=== PATIENT | male | born 1980 | race Caucasian/White ===

== ENCOUNTER 2020-04-12 19:36 | Emergency (ER) | payer OTHER, SELFPAY ==
--- NOTE | 2020-04-12 19:38 | ED.DENTAL ---
HPI - Dental/Oral General Chief complaint: Dental/Oral Stated complaint: toothache Time Seen by Provider: 04/12/20 19:38 History of Present Illness HPI Narrative: This is a 39-year-old male comes in complaining of dental pain and jaw swelling. Patient states that his teeth started to hurt a couple of days ago. Patient has multiple teeth fractures and states that he has had 2 problems since he was a child. Patient does have a dentist has not been to see him since COVID denies any fever nausea and/or vomiting. Related Data Allergies Allergy/AdvReac Type Severity Reaction Status Date / Time Penicillins Allergy Mild Unknown Verified 04/12/20 19:47 Review of Systems Review of Systems: Narrative: CONSTITUTIONAL: Denies fever, chills, or sweats. EYES: Denies visual changes, redness, or discharge. ENT: Denies rhinorrhea, congestion, sore throat, or otalgia.dENTAL PAIN CARDIOVASCULAR:Denies chest pain, palpitations, or edema. RESPIRATORY: Denies cough or dyspnea. GASTROINTESTINAL: Denies abdominal pain, nausea, vomiting, or diarrhea. GENITOURINARY: Denies dysuria or hematuria. SKIN:[Denies rash or itching. MUSCULOSKELETAL:Denies back pain, joint pain, or myalgia. NEUROLOGIC: Denies headache, numbness, or weakness. PSYCHIATRIC:Denies anxiety or depression PMFSH Comments At time as signature, I have reviewed and agree with nursing past medical, social, surgical and family history. Please see nursing chart for further information. There is no relevant family history pertinent to the presenting complaint. Exam Narrative: Exam Narrative: GENERAL:Well-appearing, well-nourished, and in no acute distress. HEAD:Normocephalic, atraumatic. EYES: PERRLA and EOMI. ENT: Nares clear, no rhinorrhea or epistaxis. Mucous membranes moist.MULTIPLE DENTAL CARIES THROUGHOUT HIS MOUTH ON THE RIGHT LOWER JAW LINE IS EDEMATOUS WITH FRACTURE TEETH DOWN TO THE GUM LINE. NECK: Supple. CHEST: Clear to auscultation. No respiratory distress. HEART: Regular rate and rhythm. No murmur heard. Normal peripheral pulses. ABDOMEN: Soft, nontender, nondistended, normal active bowel sounds. EXTREMITIES: Normal range of motion. No edema. SKIN: Warm, dry, no rash. NEURO: No focal deficits. Alert and oriented x3. Course Course Emergency Course: Your blood pressure was elevated in the clinic today, I feel that this is due to your acute illness rather than essential hypertension. please follow-up with your regular doctor for further evaluation and monitor for evaluation of hypertension Please DIXIE schedule a followup visit with your personal physician with in the next 1-4 weeks for further evaluation and treatment. Also, ask your personal physician to assist you regarding blood pressure. Even blood pressure exceeding 120/80 may indicate pre-hypertension. If your symptoms persist, change or worsen significantly before you can contact your personal physician then please, without delay, go to the emergency department for further evaluation. Discharge Plan Discharge Clinical Impression: Dental caries, Dental abscess Patient Disposition: Home, Self-Care Condition: Stable Instructions: Antibiotic Form, Dental Abscess (ED), Hypertension (ED), Toothache (ED), Mouth Care (ED) Additional Instructions: Antibiotic as directed Avoid temperature extremes May apply heat or ice to the face Gentle brushing and flossing Alternate tylenol and ibuprofen as needed for pain Follow-up with the dentist as soon as possible--see the list provided Prescriptions: New clindamycin HCl 300 mg capsule 300 mg PO Q12H 10 Days Qty: 20 RF: 0 prednisone 10 mg tablet 10 mg PO DAILY 5 Days Qty: 15 RF: 0 tramadol 50 mg tablet 50 mg PO Q6H PRN (Reason: pain) Qty: 14 RF: 0 Follow-up/Referrals: UNKNOWN,DOCTOR [Primary Care Provider] - Stand Alone Forms: Work/School Release IP Time of Disposition: 19:58
[2020-04-12 19:44] VITALS: BP 146/93; PULSE 91; RESP 20; TEMP 36.8; O2SAT 100
== END 2020-04-12 20:04 | disposition home or self-care (01) ==
PROVIDERS: Emergency Provider Nurse Practitioner Family
DX: K02.9 Dental caries, unspecified (principal); K04.7 Periapical abscess without sinus
CPT/HCPCS: 99213; G0463

== ENCOUNTER 2020-10-13 11:00 | Emergency (ER) | payer OTHER, SELFPAY ==
[2020-10-13 11:19] VITALS: BP 188/111; PULSE 126; RESP 18; TEMP 36.2; O2SAT 95
[2020-10-13] MEDS: HYDROcodone/acetaminophen (*CRX) 5-325 MG TABLET 1 TAB PO (11:47)
--- NOTE | 2020-10-13 11:57 | ED.GENADULT ---
HPI - General Adult General Chief complaint: Dental/Oral Stated complaint: tooth abscess/facial swelling Time Seen by Provider: 10/13/20 11:33 History of Present Illness HPI narrative: Patient is a 40-year-old male who presents ER with left-sided dental pain. Patient reports pain is located tooth #12. He is saw a telehealth practitioner last night and took his first dose of antibiotics today. He has increased swelling to the frontal part of his face with pain so he opted to come here. He is scheduled to see a dentist tomorrow to have his teeth pulled he is unsure if he will make it now. No fevers or chills or sweats. No difficulty breathing or swallowing. Patient reports pain initially began 3 to 4 days ago. Related Data Allergies Allergy/AdvReac Type Severity Reaction Status Date / Time Penicillins Allergy Mild Unknown Verified 04/12/20 19:47 Review of Systems Constitutional: Constitutional: Denies chills, Denies fever(s) and Denies weakness ENT: Denies dysphagia Comments: Dental pain and left facial swelling. Respiratory: Respiratory: Denies cough, Denies dyspnea and Denies wheezing PMFSH Past Medical History Medical History (Updated 10/13/20 @ 12:08 by Kevin Capellan MD) Healthy adult male Surgical History Surgical History (Updated 10/13/20 @ 12:07 by Kevin Capellan MD) H/O eye surgery Left eye as a child Social History Social History (Updated 10/13/20 @ 12:07 by Kevin Capellan MD) Tobacco type: cigarettes Gender identity (if verbalized by the patient): Male Exam Narrative: Exam Narrative: GENERAL: Well-appearing, well-nourished, and in no acute distress. HEAD: Normocephalic, atraumatic. ENT: Mucous membranes moist. Poor dentition with tenderness around tooth #12. Swelling of the lips and left face at the cheek. No discernible abscess to drain. No drainage within the mouth. CHEST: Clear to auscultation. No respiratory distress. NEURO: Alert and oriented x3. PSYCH: Normal mood and affect. Course Course Emergency Course: Will prescribe patient pain medication here and for home. Encourage patient to see his dentist tomorrow as they are the correct doctors to manage his current situation. Recommend patient continue his home antibiotics. Vital Signs Vital signs: Vital Signs Temperature 97.1 F L 03/20/21 11:19 Pulse Rate 126 H 10/13/20 11:19 Respiratory Rate 18 10/13/20 11:19 Blood Pressure 188/111 H 10/13/20 11:19 Pulse Oximetry 95 10/13/20 11:19 Temperature 97.1 F L 10/13/20 11:19 Pulse Rate 126 H 10/13/20 11:19 Respiratory Rate 18 10/13/20 11:19 Blood Pressure 188/111 H 10/13/20 11:19 Pulse Oximetry 95 10/13/20 11:19 Medical Decision Making Vital Signs Vital Signs: Vital Signs Temperature 97.1 F L 10/13/20 11:19 Pulse Rate 126 H 10/13/20 11:19 Respiratory Rate 18 10/13/20 11:19 Blood Pressure 188/111 H 10/13/20 11:19 Pulse Oximetry 95 10/13/20 11:19 Temperature 97.1 F L 10/13/20 11:19 Pulse Rate 126 H 10/13/20 11:19 Respiratory Rate 18 10/13/20 11:19 Blood Pressure 188/111 H 10/13/20 11:19 Pulse Oximetry 95 10/13/20 11:19 Discharge Plan Discharge Clinical Impression: Dental abscess Patient Disposition: Home, Self-Care Condition: Stable Instructions: Dental Abscess (ED) Additional Instructions: Return to the ER if you have chest pain or shortness of breath, you cannot keep down food or water, you have fever over 100.4 ?F, you cannot swallow. Prescriptions: New hydrocodone-acetaminophen 5-325 mg tablet 1 tablet PO Q6H PRN (Reason: pain) Qty: 20 RF: 0 Follow-up/Referrals: Thom Cuello MD [Primary Care Provider] - Stand Alone Forms: Work/School Release IP
[2020-10-13 12:22] VITALS: BP 181/108; PULSE 103; RESP 18; O2SAT 99
== END 2020-10-13 12:20 | disposition home or self-care (01) ==
PROVIDERS: Emergency Provider Emergency Medicine; PCP Family Medicine
DX: K04.7 Periapical abscess without sinus (principal); F17.210 Nicotine dependence, cigarettes, uncomplicated
CPT/HCPCS: 99283; A9270

== ENCOUNTER 2021-07-23 17:39 | Emergency (ER) | payer OTHER, SELFPAY ==
[2021-07-23 17:50] VITALS: BP 119/75; PULSE 113; RESP 16; TEMP 36.9; O2SAT 98
--- NOTE | 2021-07-23 17:54 | ED.URI ---
HPI - URI/Sore Throat General Chief Complaint: Upper Respiratory Infection Stated Complaint: congestion Time Seen by Provider: 07/23/21 17:54 Source: patient, RN notes reviewed and old records reviewed Mode of arrival: ambulatory Limitations: no limitations History of Present Illness HPI Narrative: 41-year-old male presents to the [facility] with complaints of congestion, body aches and fatigue since Thursday/Thursday. States he is here just for a Covid test. Denies chest pain or abdominal pain. Denies fevers. Related Data Home Medications Medication Instructions Recorded Confirmed No Home Medications 07/23/21 07/23/21 Allergies Allergy/AdvReac Type Severity Reaction Status Date / Time Penicillins Allergy Mild Unknown Verified 04/12/20 19:47 Review of Systems Review of Systems: All systems reviewed & are unremarkable except as noted in HPI and below Constitutional: Constitutional: Reports as per HPI, Reports chills, Reports fatigue and Denies fever(s) Eyes: Eyes: Reports no additional eye complaints ENT: Reports as per HPI and Reports nasal congestion Cardiovascular: Cardiovascular: Reports no additional cardiovascular complaints Respiratory: Respiratory: Reports no additional respiratory complaints Gastrointestinal: Gastrointestinal: Reports no additional gastrointestinal complaints Genitourinary: Genitourinary: Reports no additional male genitourinary complaints Musculoskeletal: Musculoskeletal: Reports as per HPI and Reports myalgias Integumentary/Breasts: Skin/Breast: Reports system reviewed and no additional complaints, except as docu Neurologic: Reports system reviewed and no additional complaints, except as documented Psychiatric: Psychiatric: Reports no additional psychiatric complaints Allergic/Immunologic: Allergic/Immunologic: Reports no additional allergic/immunologic complaints PMFSH Past Medical History Medical History Healthy adult male Surgical History Surgical History H/O eye surgery Left eye as a child Social History Social History Tobacco type: cigarettes Gender identity (if verbalized by the patient): Male Comments At the time of my signature, I reviewed and agree with the nursing past medical, surgical, social, and family history. There is no relevant family history pertinent to the patient complaint. Exam Const: General: healthy appearing, no acute distress and alert Nutritional Appearance: well nourished Orientation/consciousness: patient oriented x3 Limitations: no limitations HENMT: Head: normal to inspection Ears: external ears normal, TM's normal bilaterally and EAC's normal Eyes: Pupils: Equal, round and reactive pupils present Neck: Neck: normal visual inspection, no lymphadenopathy and no meningeal signs Chest: Chest palpation & inspection: normal inspection of the chest Resp: Effort & Inspection: normal respiratory effort and no use of accessory muscles Auscultation: clear to auscultation bilaterally, no crackles, no rales, no rhonchi and no wheezes Cardio: Rate: regular rate Rhythm: regular rhythm Back/Spine/Pelvis: Back: no CVA tenderness Skin: General skin exam: normal color Rashes: no rashes Wounds: no wounds Neuro: General: patient oriented x3, moves all extremities and no meningeal signs Speech: normal speech Gait exam (Neuro): Normal gait present Extrem: General: normal to inspection Psych: Appearance: grossly normal and well kempt Mental Status: mental status grossly normal Affect: normal affect Attitude: cooperative Thought content: Yes Normal thought content present Course Course Emergency Course: At the time of my signature, I reviewed and agree with the nursing past medical, surgical, social, and family history. There is no relevant family history pertinent to the patient com
== END 2021-07-23 18:22 | disposition home or self-care (01) ==
PROVIDERS: Emergency Provider Nurse Practitioner
DX: B34.9 Viral infection, unspecified (principal); Z20.822 Contact with and (suspected) exposure to COVID-19
CPT/HCPCS: 87804; 99213; G0463

== ENCOUNTER → 2021-07-25 02:13 | Outpatient (CLI) | payer OTHER, SELFPAY ==
[2021-07-25 20:33] LABS: SARS-CoV-2 RNA PCR Positive
== END ==
PROVIDERS: Visit Provider Nurse Practitioner
DX: U07.1 COVID-19 (principal)
CPT/HCPCS: C9803; U0003; U0005

== ENCOUNTER 2023-10-19 17:23 | Emergency (ER) | payer OTHER, SELFPAY ==
[2023-10-19 17:34] VITALS: BP 170/99; PULSE 81; RESP 18; TEMP 36.5; O2SAT 100
--- NOTE | 2023-10-19 17:46 | ED.DENTAL ---
HPI - Dental/Oral General Chief complaint: Dental/Oral Stated complaint: Rt Mouth Pain Time Seen by Provider: 10/19/23 17:46 Source: patient Mode of arrival: ambulatory Limitations: no limitations History of Present Illness HPI Narrative: 43-year-old male presents with complaint of right upper dental pain and swelling. Concern for dental infection. Patient reports multiple broken, decayed teeth. Is working with a dentist to have teeth pulled. Afebrile. All systems reviewed and negative except as noted above. Related Data Home Medications Medication Instructions Recorded Confirmed lisinopril 20 mg tablet mg 10/19/23 Allergies Allergy/AdvReac Type Severity Reaction Status Date / Time Penicillins Allergy Mild Unknown Verified 10/19/23 17:34 Review of Systems Review of Systems: CONSTITUTIONAL: Denies fever, chills, or sweats. EYES: Denies visual changes, redness, or discharge. ENT: Denies rhinorrhea, congestion, sore throat, or otalgia. Reports right upper dental pain. CARDIOVASCULAR: Denies chest pain, palpitations, or edema. RESPIRATORY: Denies cough or dyspnea. GASTROINTESTINAL: Denies abdominal pain, nausea, vomiting, or diarrhea. GENITOURINARY: Denies dysuria or hematuria. SKIN: Denies rash or itching. MUSCULOSKELETAL: Denies back pain, joint pain, or myalgia. NEUROLOGIC: Denies headache, numbness, or weakness. PSYCHIATRIC: Denies anxiety or depression. All other systems reviewed are negative, except as documented in HPI. PMFSH Past Medical History Medical History Healthy adult male Surgical History Surgical History H/O eye surgery Left eye as a child Social History Social History Tobacco type: cigarettes Gender identity (if verbalized by the patient): Male Comments At time of signature, agree with nursing past medical, surgical, social and family history. There is no relevant family history pertinent to the presenting complaint. Exam Narrative: GENERAL: This is a well-nourished, well-developed patient, in no apparent distress. HEAD: normocephalic, atraumatic. EYES: PERRL. Sclera clear/white. Vision is grossly intact. EARS: External ears normal NOSE: External nose normal THROAT: Mucous membranes moist, posterior pharynx clear. MOUTH: multiple decayed, broken teeth. erythema and swelling to gums no obvious abscess noted. NECK: Neck supple, non-tender without lymphadenopathy, masses or thyromegaly. CARDIOVASCULAR: Regular rate and rhythm without murmurs, gallops, or rubs. RESPIRATORY: Clear to auscultation. Breath sounds equal bilaterally. No wheezes, rales, or rhonchi. SKIN: warm, Dry, intact with no suspicious lesions or rash, good texture and turgor. NEURO: awake, alert, and oriented to person, place and time. There were no obvious focal neurologic abnormalities. EXTREMITIES: No joint tenderness, effusion, or edema noted. Course Course Level of Care: Express Care Visit Vital Signs Vital signs: Vital Signs Temperature 36.5 C 10/19/23 17:34 Pulse Rate 81 10/19/23 17:34 Respiratory Rate 18 10/19/23 17:34 Blood Pressure 170/99 H 10/19/23 17:34 Pulse Oximetry 100 10/19/23 17:34 Oxygen Delivery Room Air 10/19/23 17:34 Temperature 36.5 C 10/19/23 17:34 Pulse Rate 81 10/19/23 17:34 Respiratory Rate 18 10/19/23 17:34 Blood Pressure 170/99 H 10/19/23 17:34 Pulse Oximetry 100 10/19/23 17:34 Oxygen Delivery Room Air 10/19/23 17:34 Reviewed MDM - Dental/Oral MDM Narrative Medical decision making narrative: Patient is aware of diagnosis, understands and agrees to treatment plan. Anticipatory guidance given. Patient agrees to follow-up as directed and is aware of reasons to seek care at the emergency department. Portions of this record may have been created with voice re
== END 2023-10-19 17:55 | disposition home or self-care (01) ==
PROVIDERS: Emergency Provider Nurse Practitioner Family
DX: K04.7 Periapical abscess without sinus (principal)
CPT/HCPCS: 99213; G0463

== ENCOUNTER 2025-02-07 09:43 | Emergency (ER) | payer OTHER, SELFPAY ==
[2025-02-07 09:49] VITALS: BP 141/91; PULSE 68; RESP 17; TEMP 36.9; O2SAT 99
--- NOTE | 2025-02-07 10:11 | ED_ITS ---
HPI - Ear Problem General Chief complaint: Ear Stated complaint: Lt Ear Pain Time Seen by Provider: 02/07/25 10:04 Source: patient and RN notes reviewed Mode of arrival: ambulatory Limitations: dementia History of Present Illness HPI Narrative: 44-year-old male presents with concern for left ear lobe pain. Reports drainage, swelling, tenderness to the ear lobe around his gauge piercing. He reports he has been using antibiotic ointment. He reports he has had this in the past but it has never gotten this bad. He denies any generalized ear pain, pain around, and frontal behind the ear. He denies fever, aches, chills, sweats. MD Complaint: other (ear lobe pain) Related Data Home Medications ?Medication ?Instructions ?Recorded ?Confirmed ?Last Taken ?Type lisinopril 20 mg tablet mg 10/19/23 Unknown History Allergies Allergy/AdvReac Type Severity Reaction Status Date / Time Penicillins Allergy Mild Unknown Verified 02/07/25 10:07 Review of Systems Review of Systems: CONSTITUTIONAL: Denies malaise, chills, sweats, or fever. EYES: Denies redness, or discharge. ENT: Denies rhinorrhea, congestion, swollen lips, swollen tongue CARDIOVASCULAR: Denies chest pain, palpitations, or edema. RESPIRATORY: Denies cough or dyspnea. GASTROINTESTINAL: Denies abdominal pain, nausea, vomiting SKIN: Reports redness, swelling, tenderness with drainage to the left earlobe. Denies vesicles, bullae, numbness, pain beyond proportion MUSCULOSKELETAL: Denies joint pain or myalgia. NEUROLOGIC: Denies headache. All systems reviewed & are unremarkable except as noted in HPI and below PMFSH Past Medical History Medical History Healthy adult male Surgical History Surgical History H/O eye surgery Left eye as a child Social History Social History Tobacco type: cigarettes Gender identity (if verbalized by the patient): Male Comments At time of signature, agree with nursing past medical, surgical, social and fa domitila history. There is no relevant family history pertinent to the presenting complaint Exam Narrative: GENERAL: Well-appearing, well-nourished, and in no acute distress. HEAD: Normocephalic, atraumatic. EYES: PERRLA, conjunctivae clear ENT: Mucous membranes moist. NECK: Supple. No lymphadenopathy CHEST: Clear to auscultation. No respiratory distress. HEART: Regular rate and rhythm. SKIN: Warm, dry. Erythema, induration, tenderness, warmth with sharp margins noted to the left earlobe with yellow crustiness noted. No vesicles, bullae, necrosis, ecchymosis, crepitus noted. NEURO: Alert and oriented x3. PSYCH: Normal mood and affect Course Course Emergency Course: Patient is aware of diagnosis, understands and agrees to treatment plan. Anticipatory guidance given. Patient agrees to follow-up as directed and is aware of reasons to seek care at the emergency department. Portions of this record may have been created with voice recognition software Level of Care: [facility] [place] Visit Vital Signs Vital signs: Reviewed. Medical Decision Making MDM Narrative Medical decision making narrative: I evaluated this patient in the [facility] care. History is obtained from patient who is an independent historian and physical exam was performed.? Available medical records were reviewed. ? Exam findings show no acute concerns or changes; patient is non-toxic appearing and is in no distress. ? Differential diagnosis and treatment plan were discussed with the patient. Patient agrees with discussion and after shared medical decision making agrees with plan of care. All questions were answered to the patient's satisfaction. Patient is appropriate for outpatient treatment and follow-up. Critical Care Time Critical Care Time Critical Care Time: No Discharge Plan Discharge Clinical Impression: Cellulitis of left earlobe Patient Disposition: Home Condition: Stable Instructions: Antibiotic Form, Cellulitis (ED) Additional Instructions: Please follow up with your Primary Care Doctor within 48-72 hours - call for an appointment. Rest and elevate affected area; apply moist heat 3-4 times daily for 10-15 minutes. Take Motrin 600mg every 8 hours with food for pain. Please take Antibiotics as directed. If you experience any worsening redness, swelling, streaking (red lines), fever or chills please go to the ER Patient Language: Setswana Prescriptions: New doxycycline monohydrate 100 mg tablet 100 mg PO BID 7 Days Qty: 14 0RF No Action lisinopril 20 mg tablet Follow-up/Referrals: PHYSICIAN,DIRECTOR [employer] [Primary Care Provider] - Time of Disposition: 10:19
== END 2025-02-07 10:23 | disposition home or self-care (01) ==
PROVIDERS: Emergency Provider Nurse Practitioner
DX: H60.12 Cellulitis of left external ear (principal); F17.210 Nicotine dependence, cigarettes, uncomplicated
CPT/HCPCS: 99213; G0463

== ENCOUNTER 2025-03-29 15:40 | Emergency (ER) | payer OTHER, SELFPAY ==
[2025-03-29 15:45] VITALS: BP 132/81; PULSE 97; RESP 16; TEMP 36.2; O2SAT 96
--- NOTE | 2025-03-29 15:50 | ED.SKABFB ---
HPI - Skin/Abscess/Foreign Bdy General Chief complaint: Skin/Abscess/Foreign Body Stated complaint: wasp sting Time Seen by Provider: 03/29/25 15:50 Source: patient Mode of arrival: ambulatory Limitations: no limitations History of Present Illness HPI narrative: 44 yo M presents with c/o wasp sting to scalp for 1 days. Stung yesterday while working outdoors. Today woke up and increased swelling to scalp. hx of allergic reaction with swelling to entire R arm from wasp sting several years ago. Denies itching. Rates pain 1/10. All systems reviewed and negative except as noted above. Related Data Home Medications ?Medication ?Instructions ?Recorded ?Confirmed ?Last Taken ?Type lisinopril 20 mg tablet mg 10/19/23 Unknown History Allergies Allergy/AdvReac Type Severity Reaction Status Date / Time Penicillins Allergy Mild Unknown Verified 03/29/25 15:48 [facility] Past Medical History Medical History Healthy adult male Surgical History Surgical History H/O eye surgery Left eye as a child Social History Social History Tobacco type: cigarettes Gender identity (if verbalized by the patient): Male Comments At time of signature, agree with nursing past medical, surgical, social and family history. There is no relevant family history pertinent to the presenting complaint. Exam Narrative: GENERAL: This is a well-nourished, well-developed patient, in no apparent distress. HEAD: normocephalic, atraumatic. EYES: PERRL. Sclera clear/white. Vision is grossly intact. EARS: External ears normal NOSE: External nose normal NECK: Neck supple, non-tender without lymphadenopathy, masses or thyromegaly. CARDIOVASCULAR: Regular rate and rhythm without murmurs, gallops, or rubs. RESPIRATORY: Clear to auscultation. Breath sounds equal bilaterally. No wheezes, rales, or rhonchi. SKIN: warm, Dry, intact with no suspicious lesions or rash, good texture and turgor. Mild erythema to L side top of scalp extending to occiput with mild swelling. no drainage or fluctuance. no warmth on palpation. NEURO: awake, alert, and oriented to person, place and time. There were no obvious focal neurologic abnormalities. EXTREMITIES: No joint tenderness, effusion, or edema noted. Course Course Level of Care: [facility] Visit Vital Signs Vital signs: Vital Signs Temperature 36.2 C L 03/29/25 15:45 Pulse Rate 97 03/29/25 15:45 Respiratory Rate 16 03/29/25 15:45 Blood Pressure 132/81 03/29/25 15:45 Pulse Oximetry 96 03/29/25 15:45 Oxygen Delivery Room Air 03/29/25 15:45 Temperature 36.2 C L 03/29/25 15:45 Pulse Rate 97 03/29/25 15:45 Respiratory Rate 16 03/29/25 15:45 Blood Pressure 132/81 03/29/25 15:45 Pulse Oximetry 96 03/29/25 15:45 Oxygen Delivery Room Air 03/29/25 15:45 Reviewed MDM - Skin/Abscess/Foreign Bdy MDM Narrative Medical decision making narrative: will treat what testing with Medrol Dosepak. Recommend daily antihistamine such as Claritin or Zyrtec. Patient states that he has been out of his Lisinopril for over 6 months. Does not currently have a primary careician. Patient's blood pressure at [facility] today 132/81. Recommend he follow up with primary care physician to have blood pressure recheck prior to starting medication. Differential Diagnosis Differential diagnosis: Likely abscess of skin or subcutaneous tissue, cellulitis, insect bites and contact dermatitis Discharge Plan Discharge Clinical Impression: Accidental wasp sting Patient Disposition: Home Condition: Stable Instructions: Insect Bite or Sting (ED) Additional Instructions: Take medication as prescribed. Take Tylenol or ibuprofen every 6-8 hours as needed for pain. Take a daily antihistamine such as Claritin or Zyrtec while treating allergic reaction to wasp sting. Stop when symptoms have resolved. Follow-up with primary care physician To establish care. Patient Language: Syriac Prescriptions: New methylprednisolone [Medrol (Jorge)] 4 mg tablets,dose pack See Rx Instructions PO .COMPLEX Qty: 21 0RF Rx Instructions: orally per package directions No Action lisinopril 20 mg tablet Follow-up/Referrals: Anand Carey MD [Physician, Family Practice] Time of Disposition: 16:01
== END 2025-03-29 16:04 | disposition home or self-care (01) ==
PROVIDERS: Emergency Provider Nurse Practitioner Family; Referring Provider Emergency Medicine
DX: T63.461A Toxic effect of venom of wasps, accidental (unintentional), initial encounter (principal); L53.0 Toxic erythema; F17.210 Nicotine dependence, cigarettes, uncomplicated
CPT/HCPCS: 99213; G0463